=== PATIENT | female | born 1955 | race Caucasian/White ===

== ENCOUNTER 2016-12-24 11:06 | Day surgery (SDC) | payer MEDICARE, MEDICAID ==
[~2016-12-24 11:06] MED LIST: RINGERS SOLUTION,LACTATED 1,000 ML IV PRN
--- OUTSIDE RECORDS SUMMARY | 2016-12-24 11:09 | XMS REPORT | Continuity of Care Document ---
:1955 Author Organization [facility] ([facility]) Address [address] [place] [address] Phone [phone] Care Team Providers Name Role Phone Binta Valdivia Primary Care Provider [phone] Source Comments This disclosure is being made pursuant to the Care Everywhere program, applicable federal and state laws, and may not contain all informaitonavailable regarding this patient.[facility] ([facility]) Active Allergies and Adverse Reactions Allergen Noted Date Severity Reactions Comments Adhesive Tape Urticaria (Hives) Codeine Nausea & Vomiting Fexofenadine Nausea & Vomiting Niacin Nausea & Vomiting redness, burning Venlafaxine 01/17/2011 Nausea & Vomiting,OTHER "made me stay up all night" Current Medications Prescription Sig. Disp. Refills Start Date End Date Status fluticasone 50 use 2 Sprays into the 2 Bottle 3 06/05/2011 Active mcg/Actuation nose daily. Indications: nasal spray Chronic Non-Allergic Rhinitis potassium Take 1 Cap by mouth 60 Cap 6 10/15/2011 Active chloride 10 mEq daily. Indications: XR capsule Hypokalemia Prevention naproxen 500 mg Take 1 Tab by mouth 2 120 Tab 3 10/15/2011 Active tablet times daily with meals as needed. Indications: Pain triamterene-hydro Take 1 Tab by mouth Every 60 Tab 6 10/15/2011 Active chlorothiazide morning. Indications: (MAXZIDE-25MG) Hypertension 37.5-25 mg per tablet atenolol 50 mg Take 1 Tab by mouth 60 Tab 6 10/15/2011 Active tablet daily. Indications: Hypertension traMADol 50 mg Take 1 Tab by mouth every 240 Tab 3 10/15/2011 Active tablet 6 hours as needed for Pain. Indications: Pain, rls clindamycin 1 % apply 1 application 100 mL 2 03/14/2012 Active lotion topically daily. Apply a thin film on affected area as directed. Indications: BACTERIAL SKIN AND SKIN STRUCTURE INFECTION baclofen 10 mg Take 1 Tab by mouth 3 90 Tab 2 03/14/2012 Active tablet times daily as needed. Indications: myofascial pain lisinopril 10 mg Take 1 Tab by mouth 60 Tab 6 03/14/2012 Active tablet daily. Indications: HYPERTENSION simvastatin 20 mg Take 1 Tab by mouth every 60 Tab 3 04/21/2012 Active tablet evening. Mail out Indications: HYPERCHOLESTEROLEMIA FLUoxetine 20 mg Take 3 Caps by mouth 90 Cap 3 07/31/2012 Active capsule daily. Mail out Indications: DEPRESSION Active Problems Problem Noted Date Colon cancer screening 06/13/2012 Morbid obesity 03/14/2012 Myofascial pain 03/14/2012 Nicotine addiction 10/15/2011 Vitamin D deficiency 10/15/2011 RLS (restless legs syndrome) 10/15/2011 J LUIS (obstructive sleep apnea) 01/11/2010 Overview: CPAP Depressive disorder, not elsewhere classified 12/29/2008 Secondary localized osteoarthrosis, lower leg 11/02/2008 Other and unspecified hyperlipidemia 07/17/2002 Unspecified essential hypertension 07/17/2002 Immunizations Name Dates Previously Given Next Due Influenza, PF 06/05/2011,07/05/2010,09/01/2009 Influenza, unspecified 08/02/2008,08/03/2003,07/17/2002 Novel Influenza H1N1 09/01/2009 Pneumococcal Polysaccharide, PPSV23 07/17/2002 (Pneumovax 23) Td, adult unspecified 06/11/2000 Tdap 06/05/2011 Social History Tobacco Use Types Packs/Day Years Used Date Current Every Day Smoker Cigarettes 0.5 40 Smokeless Tobacco: Never Used Tobacco Cessation:Ready to Quit: No; Counseling Given: Yes Comments:cut back to 0.5 ppd in 11/24 Alcohol Use Drinks/Week oz/Week Comments No Last Filed Vital Signs Vital Sign Reading Time Taken Blood Pressure 119/58 06/13/2012 3:48 PM CDT Pulse 70 06/13/2012 3:48 PM CDT Temperature 36.2 C (97.2 F) 06/13/2012 3:48 PM CDT Respiratory Rate 16 12/07/2011 2:56 PM CDT Height 1.556 m (5' 1.25") 03/14/2012 2:55 PM CDT Weight 112.175 kg (247 lb 4.8 oz) 06/13/2012 3:48 PM CDT Body Mass Index 46.33 06/13/2012 3:48 PM CDT Oxygen Saturation 95% 12/07/2011 2:56 PM CDT Plan of Care Patient Goal Type Goal Diet Eat more fruits and vegetables Weight Weight below 107 kg (235 lb) Blood Pressure Blood Pressure below 140/90 Lifestyle declined wishes Health Maintenance Due Date Last Done Comments Hepatitis B Vaccine (1 of 3 - 1955 Primary Series) MMR Vaccine 11/15/1973 Cervical Cancer Screening 11/15/1985 FOBT Colon Cancer Screening 11/15/2005 Sigmoidoscopy Colon Cancer 11/15/2005 Screening Mammogram 03/14/2013 03/14/2012, Additional history exists 10/06/2010, 06/10/2007 Zoster Vaccine 2015 Influenza Vaccine: Seasonal 04/16/2016 06/05/2011, Additional history exists (#1) 07/05/2010, 09/01/2009 Colonoscopy 09/02/2016 09/02/2006 Lipid Disorder Screening 10/15/2016 10/15/2011, Additional history exists 08/02/2008, 01/05/2008 Td Vaccine 06/05/2021 06/05/2011, 06/11/2000 HCV Screening Completed 06/11/2000 Pneumococcal Vaccine Completed 07/17/2002 Tdap Vaccine Completed 06/05/2011 Results from Last 3 Months Not on file
[2016-12-24] MEDS ORDERED: RINGERS SOLUTION,LACTATED 1,000 ML IV ONE ×2 (11:30→13:12)
[2016-12-24] MEDS ORDERED: RINGERS SOLUTION,LACTATED 1,000 ML IV PRN (13:57)
[2016-12-24] MEDS ORDERED: ATENOLOL 50 MG TABLET PO PRN (14:27)
[2016-12-24 15:04] VITALS: BP 122/78
--- NOTE | 2016-12-25 12:08 | OR ---
Operative Report - Dictated Report Narrative: OPERATIVE REPORT DATE OF OPERATION: 12/24/2016 PREOPERATIVE DIAGNOSIS: No recent dedicated colon studies POSTOPERATIVE DIAGNOSIS: Diverticulosis OPERATION: Colonoscopy SURGEON: Kate Yip MD ANESTHESIA: TAINA Landers CRNA INDICATIONS FOR PROCEDURE: The patient is a 61-year-old female referred by Dr. Loza. Her last colonoscopy was in 2005. There is no family history of colon cancer. The patient is currently asymptomatic. FINDINGS: Sigmoid diverticulosis otherwise normal colonoscopy to the cecum NARRATIVE OF PROCEDURE: The patient was identified in the holding area, and prior to the administration of anesthetic, a multidisciplinary timeout was observed. With the patient in the left lateral position and after the administration of intravenous sedation, the perineum was inspected. There was no evidence of pilonidal disease or skin breakdown. The external appearance of the anus was normal. Sphincter tone was good. The flexible fiberoptic colonoscope was inserted into the rectum which was insufflated with air. The rectal mucosa and submucosal vascular pattern appeared normal, the prep was seen to be complete. The scope was advanced through the sigmoid colon, which contained scattered non-impacted noninflamed diverticular openings. The scope was advanced up the descending colon, and around the splenic flexure where the triangular haustral architecture of the transverse colon was seen. The scope was advanced across the transverse colon, around the hepatic flexure to the cecum, where the confluence of tenia and the ileocecal valve were identified. The mucosa at this level appeared normal. The scope was then slowly withdrawn in a circular fashion so that all aspects of colonic mucosa were inspected. The colon was normal in course and caliber. The haustral architecture appeared well preserved throughout with no evidence of external compression. The mucosa and submucosal vascular pattern appeared normal, specifically there was no gross evidence to suggest colitis or inflammatory bowel disease and no AV malformations were seen. The diverticulosis was mild in degree and confined primarily to the sigmoid colon. No polyps were encountered. The scope was gradually withdrawn to the level of the rectum. As much insufflated air as possible was removed. The scope was withdrawn from the patient and the procedure terminated. The patient tolerated the anesthetic and procedure well without complication and was transferred back to the ambulatory surgery area awake and in stable condition. The patient remained stable throughout a period of postoperative observation. She denied abdominal discomfort, was able to tolerate by mouth intake, and was up without assistance. I shared the operative findings with the patient and she was given copies of the photographs which appear in the medical record. She was discharged home with instructions not to engage in hazardous activity today , but may resume normal activity tomorrow, and advance diet as tolerated. She is to continue those medications as listed in the history and physical exam. RECOMMENDATION: Colon surveillance in 10 years depending upon findings and symptoms
== END 2016-12-24 11:07 | disposition home or self-care (01) ==
LOC: AMB 11:06
PROVIDERS: ATTEND Surgery
PROC: 0DJD8ZZ Inspection of Lower Intestinal Tract, Via Natural or Artificial Opening Endoscopic (ICD-10-PCS; principal; 2016-12-24 12:00)
DX: Z12.11 Encounter for screening for malignant neoplasm of colon (principal); K57.30 Diverticulosis of large intestine without perforation or abscess without bleeding; I10 Essential (primary) hypertension; E78.5 Hyperlipidemia, unspecified; E55.9 Vitamin D deficiency, unspecified; M19.90 Unspecified osteoarthritis, unspecified site; Z87.891 Personal history of nicotine dependence; Z68.41 Body mass index [BMI] 40.0-44.9, adult

== ENCOUNTER 2017-10-09 07:56 | Day surgery (SDC) | payer MEDICARE, MEDICAID ==
[2017-10-09] MEDS ORDERED: ACETAMINOPHEN 500 MG TABLET PO ONE (08:10)
--- NOTE | 2017-10-09 08:28 | OR ---
Anesthesia Pre Procedure Eval Date of Service: 10/09/17 Pre Procedure Evaluation: Last Vital Signs Temp 36.1 C L 10/09/17 08:06 Pulse 55 L 10/09/17 08:06 Resp 18 10/09/17 08:06 BP 145/61 10/09/17 08:06 Pulse Ox 99 10/09/17 08:06 O2 Oxygen Delivery Method Room Air Anesthesia Pre Procedure Evaluation DATE: 10/09/2017 TIME: 04 30 INDICATIONS: Low back and left pain, neural foraminal stenosis L5-S1 left. PAST MEDICAL HISTORY: Ms. Brady is had a long history of panic with occasional radicular pain. She was provided a bilateral neural foraminal block under CT several years ago with good relief at that time. Her pain has been increasing recently to the point where ambulation is next to impossible. The pain is all on the left side as recent with the primary issue towards the left side and occasional radiation into the hip. History of GERD: No History of smoking: No History of sleep apnea: Vital EXAM: Heart regular; lungs clear ASSESSMENT OF MEDICAL STATUS: Mrs. Brady is an appropriate candidate for a left neuroforaminal block. Yesterday she was scheduled as a facet block however noting this morning she is scheduled for a neural foraminal block I discussed at length with her the difference between CT-guided fluoroscopy guided neural foraminal block and the trade-offs between the 2. I recognize that the L5-S1 is a difficult level and she may have a limited time she is able to lie prone to her current back pain. A CT-guided block for her today is probably not a viable option as the schedule is set and the patient is comfortable to proceed with the planned left neural foraminal block. Considering the difficulty she may have leading the prone position I would plan an IV for potential pain relief or sedation. PLANNED PROCEDURE: Neuroforaminal block L5-S1 left Home Medications: HOME MEDICATIONS Baclofen 5 mg PO BID PRN 10/13/15 [Last Taken Unknown] FLUoxetine HCL [Prozac] 60 mg PO DAILY 10/13/15 [Last Taken Unknown] Ibuprofen [Motrin] 600 - 800 mg PO Q8H PRN 10/13/15 [Last Taken Unknown] Simvastatin [Zocor] 20 mg PO HS 10/13/15 [Last Taken Unknown] Triamterene/Hydrochlorothiazid [Maxzide 37.5MG/25 MG] 1 tab PO DAILY 10/13/15 [ Last Taken Unknown] oxyCODONE HCL [Oxycodone] 5 mg PO Q12H PRN 10/13/15 [Last Taken Unknown] Cholecalciferol (Vitamin D3) [Vitamin D3] 1,000 unit PO DAILY 12/19/16 [Last Taken Unknown] Metoprolol Succinate [Toprol Xl] 50 mg PO DAILY 10/07/17 [Last Taken Unknown] Phentermine HCl [Adipex-P] 37.5 mg PO DAILY 10/07/17 [Last Taken Unknown]
[2017-10-09] MEDS ORDERED: RINGER'S SOLUTION,LACTATED 1,000 ML IV ONE (08:40)
[2017-10-09] MEDS ORDERED: BUPIVACAINE HCL/PF 30 ML VIAL IJ ONE ×2 (09:16)
[2017-10-09] MEDS ORDERED: DEXAMETHASONE SODIUM PHOSPHATE 10 MG/ML VIAL IJ ONE ×2 (09:16)
[2017-10-09] MEDS ORDERED: LIDOCAINE HCL/PF 5 ML VIAL IJ ONE ×2 (09:16)
[2017-10-09] MEDS ORDERED: IOPAMIDOL 20 ML VIAL IJ ONE (09:16)
--- NOTE | 2017-10-09 09:47 | OR ---
Anesthesia Procedure Note - Anesthesia Procedure Note Date of Service: 10/09/17 Narrative: Vital Signs - Last Taken Temp 36.1 C L 10/09/17 08:06 Pulse 57 L 10/09/17 09:15 Resp 17 10/09/17 09:15 BP 116/72 10/09/17 09:15 Pulse Ox 99 10/09/17 09:15 O2 Oxygen Delivery Method Nasal Cannula ANESTHESIA PROCEDURE NOTE Date of Procedure: 10/09/2017 Time of procedure: 8:50 AM. Performed by: Constantino Franco CRNA, BASTER HAND, MSN Hammer Fitter: Ewa Agrawal RN. Preprocedure diagnosis: Left neural foraminal stenosis low back and left hip pain. Post procedure diagnosis: Same. Procedure: Left neural foraminal block. Indications: Left back and hip pain. Findings: See below. Details of the procedure: The patient was brought to OR #4 and was placed in the prone position. Due to the patient's history of current anxiety, as well as her current issue with laying prone for any length of time and IV was initiated with a #22-gauge IV in the left hand using lactated Ringer's 2 insidious medication. Fentanyl and Versed were given to the patient's affect which totaled 100 g of fentanyl +5 mg as. Having obtained reasonable anxiolysis with monitoring in place and O2 per nasal cannula and proceeded to prepare injection. The back was prepped with DuraPrep and draped in a sterile fashion. The lumbar area was under fluoroscopy and after adjusting the C-arm to a plane perpendicular to the intended lumbar vertebral level, a straight needle gonzalez was used to identify the level of treatment. An oblique view was then obtained to identify the angle of entry and the area was localized with 1% lidocaine solution and a 22ga Barroso needle oriented down the beam of the fluoroscopy tube. Reorienting the C-arm to a lateral view the needle was then positioned to the upper part of the neural foraminal opening and 1mL of Isovue- 200 was injected demonstrating an area of distribution which did not represent the neural foraminal sheath. The needle was advanced slightly and the procedure repeated without improvement in distribution of contrast. An additional AP, oblique and lateral view was taken and contrast injected demonstrating a better flow of the neural foraminal sheath. The CT from previous injections was brought up and compared to current placement of the spinal needle which appeared to be the appropriate length and angle approach. A distribution following the corresponding nerve and some retrograde into the epidural area. 1.5 mL of lidocaine 1% preservative-free with 5 mg of preservative-free dexamethasone was then injected, the stylette was replaced and the spinal needle removed. A Band-Aid was then applied to the injection site,the patient returned to the OR stretcher with good relief of pain and was then returned to [facility]. Fluoroscopy time: 70.2 seconds Energy dosage: 44.74mGy EBL: Minimal/negative. Fluids: N/A. Specimen: N/A. Post procedure condition: The patient tolerated the procedure well. No complications were noted. Thank you for this consultation. Constantino Franco CRNA, BASTER HAND, MSN 10/09/17 09:37
--- NOTE | 2017-10-09 09:56 | OR ---
Anesthesia Procedure Note - Anesthesia Procedure Note Date of Service: 10/09/17 Narrative: Vital Signs - Last Taken Temp 35.9 C L 10/09/17 09:39 Pulse 51 L 10/09/17 09:39 Resp 16 10/09/17 09:39 BP 136/68 10/09/17 09:39 Pulse Ox 99 10/09/17 09:39 O2 Oxygen Delivery Method Room Air 10/09/17 09:55 As an addendum to the transforaminal block just performed, Ms. Brady had a pain level of 3/10 preop, and is now at 0/10.
[2017-10-09 10:43] VITALS: BP 128/59
== END 2017-10-09 07:57 | disposition home or self-care (01) ==
LOC: AMB 07:56
PROVIDERS: ATTEND Family Medicine
PROC: 3E0T3BZ Introduction of Anesthetic Agent into Peripheral Nerves and Plexi, Percutaneous Approach (ICD-10-PCS; principal; 2017-10-09)
PROC: 3E0T33Z Introduction of Anti-inflammatory into Peripheral Nerves and Plexi, Percutaneous Approach (ICD-10-PCS; 2017-10-09)
PROC: BR16ZZZ Fluoroscopy of Lumbar Facet Joint(s) (ICD-10-PCS; 2017-10-09)
DX: M99.53 Intervertebral disc stenosis of neural canal of lumbar region (principal); M54.5 Low back pain; M54.17 Radiculopathy, lumbosacral region; M25.552 Pain in left hip

== ENCOUNTER 2020-09-06 06:27 | Observation (INO) ==
[~2020-09-06 06:27] MED LIST changes: +MORPHINE SULFATE 15 MG TABLET.SA PO PRN; -RINGERS SOLUTION,LACTATED 1,000 ML IV PRN; +ROPIVACAINE HCL/PF 100 MG, EPINEPHrine 0.2 MG, KETOROLAC TROMETHAMINE 15 MG in NORMAL S... IJ PRN; +TRANEXAMIC ACID 1,000 MG in NORMAL SALINE 100 ML IV PRN; +ceFAZolin SODIUM 1 GM VIAL IV PRN
[2020-09-06] MEDS: RINGER'S SOLUTION,LACTATED 1,000 ML IV PRN ×2 (06:55→09:25)
[2020-09-06] MEDS ORDERED: ceFAZolin SODIUM 1 GM VIAL ONE (07:16)
[2020-09-06] MEDS ORDERED: ISOPROPYL ALCOHOL 480 APPL BTL MC ONE (07:16)
--- NOTE | 2020-09-06 07:33 | ANES ---
Anesthesia Pre Procedure Eval Vitals/Labs: Last Vital Signs Temp 36.3 C 09/06/20 06:28 Pulse 74 09/06/20 06:28 Resp 16 09/06/20 06:28 BP 148/75 09/06/20 06:28 Pulse Ox 99 09/06/20 06:28 HOME MEDICATIONS Ibuprofen [Motrin] 600 - 800 mg PO Q8H PRN 10/13/15 [Last Taken Unknown] Cholecalciferol (Vitamin D3) [Vitamin D3] 1,000 unit PO DAILY 12/19/16 [Last Taken 04/30/18] Durable Medical Equipment See Dose Instructions .ROUTE .MEDSUPPLY #1 ea 05/07/19 [Last Taken Unknown] triamterene 37.5 mg-hydrochlorothiazide 25 mg tablet 1 tab PO DAILY #90 tab 11/02/19 [Last Taken 09/06/20] metoprolol succinate 50 mg tablet,extended release 24 hr 50 mg PO DAILY #90 tab 04/11/20 [Last Taken 09/06/20] Baclofen 10 mg PO BID PRN 07/13/20 [Last Taken Unknown] fluoxetine 60 mg tablet 60 mg PO DAILY #90 tab 07/13/20 [Last Taken Unknown] oxycodone 5 mg tablet 5 mg PO Q12H PRN #60 tab 08/31/20 [Last Taken Unknown] Simvastatin 20 mg PO DAILY 09/06/20 [Last Taken Unknown] Allergies/Adverse Reactions: Allergies Allergy/AdvReac Type Severity Reaction Status Date / Time niacin Allergy Mild REDNESS, Verified 09/06/20 06:47 BURNING, VOMITING fexofenadine AdvReac Mild Vomiting Verified 09/06/20 06:47 - Planned Procedure Planned Procedure: Arthroplasty LT Total Knee Medication List Reviewed:: Yes Allergies Verified: Yes Medical History (Last Reviewed 09/06/20 @ 07:29 by Constantino Franco CRNA) Arthritis Onset Date: Unknown Bilateral primary osteoarthritis of knee Onset Date: 06/10/17 Chronic pain Onset Date: Unknown Chronic renal insufficiency Onset Date: 06/24/13 DJD (degenerative joint disease) of knee Onset Date: Unknown bilateral Depression Onset Date: Unknown Essential hypertension Onset Date: 09/10/12 Hepatitis C infection Onset Date: Unknown Hyperlipidemia Onset Date: Unknown Osteoarthritis Onset Date: 06/23/14 Sinusitis, chronic Onset Date: Unknown Sleep apnea Onset Date: 06/23/14 CPAP Stress incontinence in female Onset Date: Unknown Urinary incontinence Onset Date: Unknown Vitamin D deficiency Onset Date: Unknown Tobacco abuse Onset Date: Unknown Surgical History (Last Reviewed 09/06/20 @ 07:30 by Constantino Franco CRNA) H/O dilation and curettage Onset Date: 1976 History of section Onset Date: 1978 History of cholecystectomy Onset Date: 1975 open History of colonoscopy Onset Date: 12/24/16 ' [facility]-normal. Bagan-diverticulosis. Recheck 10 yrs. 2005, 12/24/16 History of excision of mass Onset Date: ~05/01/18 Left foot [address]Dr Bryan History of hysterectomy Onset Date: 1996 RAMON BSO Hx of appendectomy Onset Date: 1975 Hx of breast surgery Onset Date: 1987 bx-benign Hx of tubal ligation Onset Date: 1978 Family History (Last Reviewed 09/06/20 @ 07:30 by Constantino Franco CRNA) Mother Anxiety Hypertension thyroid problems Father , age 63- [place] Myocardial infarction COPD (chronic obstructive pulmonary disease) Hypertension Sister Ovarian cancer Bladder cancer Anxiety Depression Cancer larynx Sister Myocardial infarction thyroid problems Sister thyroid problems Brother Anxiety all 3 brothers Myocardial infarction all 3 brothers Hypertension all 3 brothers - Family Anesthesia History Family History:: no untoward family reactions to anesthesia, no familial bleeding tendencies, no family history of clotting disorders, no family history of premature - Airway/Neck/Teeth Within Normal Limits:: Yes Teeth Condition: intact Neck Exam: full range of motion Mallampatti Score: 2 Thyromental (T-M) distance: > 6 cm Mandibulo Hyoid distance: > 3 cm - Respiratory Respiratory History: sleep apnea, CPAP/BiPAP home use Smoking Status: Former smoker - quit 3 years ago Sleep Apnea currently treated: No Sleep Apnea by current assessment: No - Cardiovascular Cardiac History: hypertension, hyperlipidemia Tolerate Activity: Poor Heart Sounds: S1 & S2, Regular - Gastrointestinal NPO since: 2400 - Anesthesia Assessment and Plan ASA Class: PS, III Anesthesia Type Plan: Block - adductor canal block for post op pain relief, Spinal
[2020-09-06] MEDS ORDERED: MIDAZOLAM HCL/PF 5 MG/ML VIAL ONE (07:44)
[2020-09-06] MEDS ORDERED: PROPOFOL VIAL IV ONE (07:44)
[2020-09-06] MEDS ORDERED: BUPIVACAINE HCL/EPINEPHRINE 50 ML VIAL ONE (07:45)
--- NOTE | 2020-09-06 10:31 | OR ---
Operative Report - Dictated Report Narrative: Date: 09/06/2020 Preoperative diagnosis: Left knee degenerative joint disease. Postoperative diagnosis: Left knee degenerative joint disease. Procedure: Left total knee arthroplasty. Surgeon: Damion Borja M.D. Crap Game Box Person: Sinan Sampson PA-C (provided and essential set of skilled, educated hands that assisted with transfer, positioning, prepping, draping, manipulation, retraction, placement of jigs, injection, insertion of implants, irrigation, closure wounds, and dressings all of which could not be performed by the available surgical crew) Anesthesia: Spinal with regional block and local periarticular joint injection. Complications: None Specimens: Bone. Estimated blood loss: Minimal. Tourniquet time: 80 Minutes at 325 millimeters of mercury. Retained implants: Depuy Attune size 6 narrow left lugged cemented posterior stabilized femoral component. Size 5 fixed-bearing cemented tibial platform. 6 by 5 millimeter posterior stabilized cross-linked tibial insert. 35 millimeter medialized patella button. Indications: Mrs. Brady is a 64-year-old female who has had longstanding left knee pain and arthrosis. This patient was followed in my clinic for period of time with significant complaints of left knee pain consistent with arthritic changes. She had failed conservative measures including, but not limited to, activity modification, passage of time, medications, and other conservative measures. Patient wished to proceed with surgical treatment. The risks, benefits, and alternatives were discussed in clinic. The risks of , blood clots, bleeding, infection, nerve/tendon blood vessel/ injury, malposition of components, intraoperative fracture, postoperative limited range of motion, persistent pain, failure of components, and need for additional procedures. Patient wished to proceed consent was obtained after answering all questions. Procedure: After marking the correct extremity on the floor, the patient was taken to the operating room. A timeout was performed. IV antibiotics consisting of Ancef were administered prior to the procedure. A regional followed by spinal anesthetic was induced by anesthesia, per my request, on the operative table with all bony prominences well-padded. Ardon catheter was placed, and a bump was placed under the operative side buttock. SCDs and ELI hose were utilized on the nonoperative leg. A well-padded tourniquet was applied to the operative thigh. The operative leg was then pre-scrubbed with alcohol, prepped, and draped in a standard sterile fashion. After exsanguinating the extremity with an Esmarch bandage, the tourniquet was inflated. After marking out the anterior knee for standard incision centered over the patella, the skin was incised and dissected down to the joint retinaculum. The joint retinaculum was marked out as well as the horizontal axis of the patella, and a standard medial parapatellar arthrotomy was then made. The most proximal aspect of the quadriceps tendon and the patella tendon insertion were protected from release. A partial synovectomy was performed as well as a resection of the infrapatellar fat pad. The distal femoral fat pad proximal to the trochlea was also resected using cautery. The soft tissues were elevated off the medial aspect of the proximal tibia using a Harris elevator ensuring that we did not transect the medial collateral ligament. Upon initial evaluation range of motion was approximately 0 degrees to 120 degrees of flexion. There were signs of advanced arthrosis in the medial, lateral, and patellofemoral joint spaces. There were large marginal osteophytes which were removed with a rongeur. The knee was hyperflexed and the patella was tucked laterally. Protecting the surrounding soft tissues with Homans, an entry drill was placed down the femoral canal using Whitesides line for guidance into the entry point. The intramedullary femoral alignment saadia was utilized in order to cut the distal femur in 5 degrees of valgus resecting 10 millimeters of bone. Next the distal femur was sized to a size 6. A posterior referencing guide was utilized to place the distal femoral cutting block in 3 degrees of external rotation. This was pinned into place. The rotation was confirmed both visually and based on anatomic landmarks. The 4 in 1 cutting jig of the appropriate size was utilized in order to make all bony cuts. The violette wing was used to ensure no notching. Retractors were utilized in order to protect surrounding soft tissues. This cut did not result in any excessive notching. We then cut the box centered over the distal femur. This allowed for resection of the anterior and posterior cruciate ligaments. I then turned my attention to the preparation of the tibia. Using an extra medullary tibial alignment saadia, 3 millimeters of bone was resected off the medial articular surface. This was made perpendicular to the mechanical axis of the joint with the alignment saadia centered over the ankle mortise. The alignment saadia was checked and was noted to be parallel to the mechanical axis, centered over the medial one third of the tibial tubercle, paralleling the anterior surface of the tibia. We then turned our attention to the remaining meniscus and soft tissues. These were removed while protecting the surrounding ligaments and soft tissues. The marginal osteophytes off the anterior, posterior, medial, lateral aspects of the femur and tibia were removed. The tibia was sized out to a size 5. Next the tibia was drilled and punched in an externally rotated position. Next the trial femur and a series of tibial inserts were utilized in order to allow for full extension and maximal flexion. It was found that a 5 millimeter insert gave the best range of motion and stability at multiple flexion points as well as at full extension there was less than 2 mm of gapping both medially and laterally. There is minimal anterior translation with the knee at 90 degrees of flexion and no signs of being able to dislocate the knee. The patella was then prepared. The initial thickness was 21 millimeters. This was reamed down to 12 millimeters parallel to the anterior surface of the patella. It was sized out to a size 35 medialized patella button. This was then drilled and trialed. Without any medial restraint the patella tracked appropriately and did not sublux or dislocate. At this point, it was felt these were the appropriate sized implants, and all trials were removed. The standard periarticular joint injection consisting of ropivacaine, Toradol, and epinephrine were injected into the periarticular joint tissues. The bony surfaces were thoroughly irrigated with a pulsatile-suction saline irrigation device. A bone plug from the prior resected anterior chamfer cut was placed into the drill hole at the distal femur. The bony surfaces were then dried in preparation for placement of the implants. The cement was vacuum mixed per the livestock agent's instructions. The cement was placed on the dry bony surfaces and posterior aspect of the implants. The implants were impacted into place, removing all extruded cement. At this point anesthesia administered tranexamic acid per protocol intravenously. The knee was placed in extension with axial loading with the trial insert while the cement cured. Once the cement cured, all remaining extruded cement was removed. The knee was placed through a range of motion with the trial insert to ensure appropriate range of motion and stability. Final range of motion was approximately 0 to 120 degrees. The knee was again thoroughly irrigated with pulsatile saline lavage. The final polyethylene insert was then impacted into place ensuring no retained soft tissues. The remaining periarticular joint injection was injected. A medium Hemovac drain was placed exiting superior laterally. The knee was then placed over a triangle and the arthrotomy was closed with interrupted #1 Vicryl after thoroughly irrigating the joint. The deep and subcutaneous tissues were closed with interrupted 0 and 3-0 Vicryl respectively. Skin was closed with a running subcutaneous 3-0 Monocryl and Prineo Dermabond dressing. 4 x 4's, Sof-Rol, and a full leg Jose Antonio wrap were applied. All sponge, needle, blade, and instrument counts were correct prior to closing the wounds. Postoperative condition: The patient was awoken and transferred to the postanesthesia care unit in stable condition. Plan is to be admitted to the inpatient medical/surgical floor postoperatively for 24 hours of IV antibiotics, physical therapy, occupational therapy, and medical comanagement. Patient will be weightbearing as tolerated with range of motion as tolerated. DVT prophylaxis will be with SCDs, ELI hose, and pharmacological anticoagulation. Anticipated hospital stay is approximately 1-3 days.
[2020-09-06] MEDS ORDERED: diphenhydrAMINE HCL 50 MG/ML VIAL IV PRN (10:32)
[2020-09-06] MEDS ORDERED: MAG HYDROX/ALUMINUM HYD/SIMETH 30 ML UDC PO PRN (10:32)
[2020-09-06] MEDS ORDERED: MAGNESIUM HYDROXIDE 30 ML UDC PO PRN (10:32)
[2020-09-06] MEDS ORDERED: ONDANSETRON HCL/PF 2 MG/ML VIAL IV PRN (10:32)
[2020-09-06] MEDS ORDERED: DEXTROSE 5%-LACTATED RINGERS 1,000 ML IV PRN (10:32)
[2020-09-06] MEDS ORDERED: ZOLPIDEM TARTRATE 5 MG TABLET PO PRN (10:32)
[2020-09-06] MEDS ORDERED: ACETAMINOPHEN 500 MG TABLET PO PRN (10:32)
[2020-09-06] MEDS ORDERED: MORPHINE SULFATE 2 MG/ML DISP.SYRIN IV PRN (10:32)
[2020-09-06] MEDS ORDERED: BACLOFEN 10 MG TABLET PO PRN (10:33)
--- NOTE | 2020-09-06 10:52 | ANES ---
Anesthesia Procedure Note Procedure Note: ANESTHESIA PROCEDURE NOTE Date of Procedure: 09/06/2020 Time of procedure: 8:30 AM. Performed by: YOUSIF Nieto CRNA, MSN Service Desk Manager: Jaime Nicole RN. Preprocedure diagnosis: Post total knee arthroplasty pain. Post procedure diagnosis: Same. Procedure: Left adductor Canal Block. Indications: Post left total knee arthroplasty pain relief. Findings: See below. Details of the procedure: The patient was brought to OR #4 and placed in supine position. The patient's left femoral area to the knee was prepped with chlorhexidine and using ultrasound guidance the left femoral artery and nerve was identified and then followed to the level of the adductor canal. Lidocaine 1% was infiltrated to the skin of the intended injection site. Under ultrasound guidance the saphenous nerve was approached with visualization of a 4 inch shielded block needle. Once saphenous nerve was identified with proximity to the needle tip, the saphenous nerve was surrounded with 30 mL bupivacaine 0.5% with 1-200,000 epinephrine. Please see radiology/ultrasound report for details and retained images of the procedure. EBL: 0 Fluids: N/A. Specimen: N/A. Post procedure condition: The patient tolerated the procedure well. No complications were noted. Thank you for this consultation. Constantino Franco CRNA, ARNP, MSN
--- NOTE | 2020-09-06 10:56 | ANES ---
Post Anesthesia Discharge - Transfer of Care Transfer of Care handoff given to nurse: Yes - Discharge from PACU Discharge from PACU when meets criteria: Yes - Alert and comfortable.
--- NOTE | 2020-09-06 11:28 | ANES ---
Post Anesthesia Assessment - Vital Signs Vitals: Last Vital Signs Temp 36.8 C 09/06/20 11:15 Pulse 61 09/06/20 11:15 Resp 17 09/06/20 11:15 BP 106/48 09/06/20 11:15 Pulse Ox 97 09/06/20 11:15 Airway Patency: Normal - Mental Status Level Of Consciousness: Awake, Alert, Appropriate - Pain Level Pain Score: 0 - N/V Assessment Nausea/Vomiting Presence: None Dehydration:: No
[2020-09-06] MEDS: KETOROLAC TROMETHAMINE 15 MG/ML VIAL IV SCH ×3 (11:48→22:47)
[2020-09-06] MEDS: oxyCODONE HCL/ACETAMINOPHEN 1 TAB TABLET PO PRN ×3 (11:50→23:35)
[2020-09-06] MEDS: CEFAZOLIN SODIUM/DEXTROSE,ISO 1 GM/50 ML BAG IV SCH ×2 (11:51→18:37)
[2020-09-06] MEDS: MORPHINE SULFATE 15 MG TABLET.SA PO SCH (20:10)
[2020-09-06] MEDS ORDERED: SENNOSIDES/DOCUSATE SODIUM 1 TAB TABLET PO SCH (21:00)
[2020-09-07] MEDS: CEFAZOLIN SODIUM/DEXTROSE,ISO 1 GM/50 ML BAG IV SCH (00:52)
[2020-09-07] MEDS: KETOROLAC TROMETHAMINE 15 MG/ML VIAL IV SCH ×3 (04:55→16:04)
[2020-09-07 06:22] LABS: Hematocrit 36.5 % (37.0-47.0); Hemoglobin 11.7 gm/dL (12.5-16.0); Mean Cell Volume 99.7 fl (78-100); Mean Corpuscular Hgb Conc 32.1 g/dl (32-36); Mean Platelet Volume 10.6 fl (8-12.5); Platelet Count 165 K/mm3 (150-450); Red Blood Count 3.66 M/mm3 (4.2-5.4); Red Cell Distribution Width 12.8 % (11.5-14.0); White Blood Count 5.5 K/mm3 (4.0-10.5)
[2020-09-07 06:28] LABS: Anion Gap 6.3 mmol/L (6.8-13.8); BUN/Creatinine Ratio 19.2 (9.0-21.6); Calcium * 8.5 mg/dL (7.9-10.9); Carbon Dioxide 31.8 mmol/L (24-32.6); Estimated Creat Clear 30.5; Potassium 3.1 mmol/L (3.4-4.6)
[2020-09-07] MEDS: oxyCODONE HCL/ACETAMINOPHEN 1 TAB TABLET PO PRN ×3 (06:45→16:03)
[2020-09-07] MEDS: MORPHINE SULFATE 15 MG TABLET.SA PO SCH (08:42)
[2020-09-07] MEDS ORDERED: FLUoxetine HCL 20 MG CAPSULE PO SCH (09:00)
[2020-09-07] MEDS ORDERED: CHOLECALCIFEROL 1,000 UNIT CAPSULE PO SCH (09:00)
[2020-09-07] MEDS ORDERED: METOPROLOL SUCCINATE 50 MG TABLET.SA PO SCH (09:00)
[2020-09-07] MEDS ORDERED: FLU VACC QS2020-21(6MOS UP)/PF 60 MCG/0.5 ML SYRINGE IM ONE (09:00)
[2020-09-07] MEDS ORDERED: TRIAMTERENE/HYDROCHLOROTHIAZID 1 TAB TABLET PO SCH (09:00)
[2020-09-07] MEDS ORDERED: SIMVASTATIN 20 MG TABLET PO SCH (09:00)
[2020-09-07] MEDS ORDERED: ENOXAPARIN SODIUM 40 MG/0.4 ML SYRG SC SCH (09:32)
--- NOTE | 2020-09-07 16:29 | DS ---
(1) Hypertension Problem: Chronic (2) Status post left knee replacement Problem: Acute (3) Morbid obesity Problem: Chronic (4) Chronic renal insufficiency Problem: Chronic (5) Hepatitis C Problem: Chronic (6) Hyperlipidemia Problem: Chronic (7) Depression Problem: Chronic (8) Sleep apnea Problem: Chronic (9) Incontinence Problem: Chronic Qualifiers: Incontinence type: urinary (10) Vitamin D deficiency Problem: Chronic Date of Discharge:: 09/07/20 Hospital Course: Mrs. Brady was admitted to the floor after undergoing left total knee arthroplasty. Tolerated this well. Was admitted to the floor postoperatively for 24 hours of IV antibiotics, pain control, medical comanagement, and occupational and physical therapy. OT and PT were consulted to assist with activities of daily living and ambulation. Was made weightbearing as tolerated with range of motion as tolerated. Pain was initially controlled with IV regimen. This was transitioned to oral once tolerating a by mouth intake. Was resumed on home diet and medications. A Ardon catheter was inserted in the operating room which was discontinued by postoperative day 1. A drain was placed intraoperatively into the knee which was discontinued on postoperative day 1. Lovenox, SCDs, and ELI hose were utilized for DVT prophylaxis. Vital signs remained stable to the hospital course. Labs were obtained which showed a final hemoglobin of 11.7 grams. BMP was reviewed and was stable. Physical examination throughout the hospital course showed an extremity that had sensation that was intact to light touch, palpable pulses, a benign wound, motor intact to the toes, ankle, and knee. Knee range of motion was approximately [] degrees to [] degrees. Once an oral pain regimen was tolerated and physical therapy goals were met, it was felt that they were stable for discharge to home. Instructions: Continue with weightbearing as tolerated and range of motion as tolerated. It is okay to shower and get the wound wet as long as there is no drainage from the wound. Do not bathe or soak the wound. If there is any drainage from the wound keep the wound clean and dry and cover with dry gauze and tape. Change every 2-3 days as needed if there is any drainage. Cover wound while showering if there is any drainage. Continue with physical therapy. Resume home diet. Report any fever over 101.5 Fahrenheit, uncontrolled pain, increased drainage, foul odor of drainage, new or increased calf pain or shortness of breath, or any other significant complaints. A 325mg daily aspirin will be started after finishing anticoagulation if not allergic. Continue with ELI hose on the operative extremity until instructed otherwise. No driving until instructed otherwise. Follow up in approximately 2-3 weeks. Procedures Performed: see notes below List Procedures: Left total knee arthroplasty Results and Findings: Lab Pending Results 09/07/20 06:19: WBC 5.5, RBC 3.66 L, Hgb 11.7 L, Hct 36.5 L, MCV 99.7, MCH 32.0 H, MCHC 32.1, RDW 12.8, Plt Count 165, MPV 10.6 09/07/20 06:19: Sodium 136, Plasma Sodium 136, Potassium 3.1 L, Chloride 101, Carbon Dioxide 31.8, Anion Gap 6.3 L, BUN 28 H, Creatinine 1.46 H, Est GFR (Non- Af Amer) 38 L, BUN/Creatinine Ratio 19.2, Random Glucose 131 H, Calcium 8.5 Discharge Location: Home Disposition: Home self-care Condition: Good Discharge Activity: Activity as tolerated, Weight bearing Discharge Diet: General/regular food Referrals: Kavon Loza DO [Primary Care Provider] - Problem Oriented Discharge Instructions to Patient/Family: Total Knee Replacement, Care After, [id number] Additional Patient Instructions (free text): Physical Therapy at [facility] outpatient rehab department on September 08 at 11:00am. Follow up [facility] Orthopedic office appointment on SaturdaySeptember 26 at 9:15am. Prescriptions (Any new or edited meds): Enoxaparin Sodium [Lovenox] 40 mg SC Q24H #7 disp.syrin Transmission Status: Pending to [facility] #[id number] Morphine Sulfate [Ms Contin] 15 mg PO Q12H #10 tablet.sa Transmission Status: Received by [facility] #[id number] oxyCODONE HCL/ACETAMINOPHEN [Percocet 5 MG/325 MG] 1 - 2 tab PO Q4H PRN #50 tab PRN Reason: Moderate Pain (Pain Scale 4-6) Transmission Status: Received by [facility] #[id number] Sennosides/Docusate Sodium [Senokot-S] 2 tab PO HS #60 tab Transmission Status: Pending to [facility] #[id number] Complete Home Medications List: Complete Home Medication List: Cholecalciferol (Vitamin D3) [Vitamin D3] 1,000 unit PO DAILY 12/19/16 Durable Medical Equipment See Dose Instructions .ROUTE .MEDSUPPLY #1 ea 05/07/19 triamterene 37.5 mg-hydrochlorothiazide 25 mg tablet 1 tab PO DAILY #90 tab 11/02/19 metoprolol succinate 50 mg tablet,extended release 24 hr 50 mg PO DAILY #90 tab 04/11/20 Baclofen 10 mg PO BID PRN 07/13/20 fluoxetine 60 mg tablet 60 mg PO DAILY #90 tab 07/13/20 Simvastatin 20 mg PO DAILY 09/06/20 Enoxaparin Sodium [Lovenox] 40 mg SC Q24H #7 disp.syrin 09/07/20 Morphine Sulfate [Ms Contin] 15 mg PO Q12H #10 tablet.sa 09/07/20 Sennosides/Docusate Sodium [Senokot-S] 2 tab PO HS #60 tab 09/07/20 oxyCODONE HCL/ACETAMINOPHEN [Percocet 5 MG/325 MG] 1 - 2 tab PO Q4H PRN #50 tab 09/07/20 Amb Orders for Discharge: PT Evaluation and Treatment* Facility: [facility], Location: Rehabilitation Services
[2020-09-07 16:52] VITALS: BP 95/42
== END 2020-09-07 17:35 | disposition home or self-care (01) ==
LOC: SUR 06:27 → MS 06:27
PROVIDERS: ADMIT Orthopaedic Surgery; ATTEND Orthopaedic Surgery

== ENCOUNTER 2020-11-17 08:28 | Observation (INO) ==
[~2020-11-17 08:28] MED LIST changes: -ROPIVACAINE HCL/PF 100 MG, EPINEPHrine 0.2 MG, KETOROLAC TROMETHAMINE 15 MG in NORMAL S... IJ PRN; +ROPIVACAINE/CLONIDIN/KETOROLAC 50 ML SYRINGE IJ PRN
[2020-11-17] MEDS: RINGER'S SOLUTION,LACTATED 1,000 ML IV PRN ×2 (08:55→11:13)
[2020-11-17] MEDS ORDERED: ROPIVACAINE/CLONIDIN/KETOROLAC 50 ML SYRINGE IJ ONE (09:04)
[2020-11-17] MEDS ORDERED: ceFAZolin SODIUM 1 GM VIAL ONE (09:04)
--- NOTE | 2020-11-17 10:27 | ANES ---
Anesthesia Pre Procedure Eval Vitals/Labs: Last Vital Signs Temp 36.2 C 11/17/20 08:40 Pulse 69 11/17/20 08:40 Resp 14 11/17/20 08:40 BP 140/56 11/17/20 08:40 Pulse Ox 99 11/17/20 08:40 HOME MEDICATIONS Cholecalciferol (Vitamin D3) [Vitamin D3] 1,000 unit PO DAILY 12/19/16 [Last Taken 04/30/18] Durable Medical Equipment See Dose Instructions .ROUTE .MEDSUPPLY #1 ea 05/07/19 [Last Taken Unknown] metoprolol succinate 50 mg tablet,extended release 24 hr 50 mg PO DAILY #90 tab 04/11/20 [Last Taken 11/17/20] Baclofen 10 mg PO BID PRN 07/13/20 [Last Taken Unknown] fluoxetine 60 mg tablet 60 mg PO DAILY #90 tab 07/13/20 [Last Taken Unknown] Simvastatin 20 mg PO DAILY 09/06/20 [Last Taken Unknown] aspirin 325 mg tablet 325 mg PO DAILY 09/26/20 [Last Taken 10/27/20] triamterene 37.5 mg-hydrochlorothiazide 25 mg tablet 1 tab PO DAILY #90 tab 10/06/20 [Last Taken 11/17/20] oxycodone-acetaminophen 5 mg-325 mg tablet 1 - 2 tab PO Q8H PRN #35 tab 10/18/20 [Last Taken Unknown] tramadol 50 mg tablet 100 mg PO TID PRN #60 tab 11/08/20 [Last Taken Unknown] Allergies/Adverse Reactions: Allergies Allergy/AdvReac Type Severity Reaction Status Date / Time niacin Allergy Mild REDNESS, Verified 11/17/20 08:43 BURNING, VOMITING fexofenadine AdvReac Mild Vomiting Verified 11/17/20 08:43 - Planned Procedure Planned Procedure: Right Arthroplasty Total Knee Medication List Reviewed:: Yes Allergies Verified: Yes Medical History (Last Reviewed 11/17/20 @ 10:26 by Constantino Franco CRNA) Arthritis Onset Date: Unknown Bilateral primary osteoarthritis of knee Onset Date: 06/10/17 Chronic pain Onset Date: Unknown Chronic renal insufficiency Onset Date: 06/24/13 DJD (degenerative joint disease) of knee Onset Date: Unknown bilateral Depression Onset Date: Unknown Essential hypertension Onset Date: 09/10/12 Hepatitis C infection Onset Date: Unknown Hyperlipidemia Onset Date: Unknown Osteoarthritis Onset Date: 06/23/14 Sinusitis, chronic Onset Date: Unknown Sleep apnea Onset Date: 06/23/14 CPAP Stress incontinence in female Onset Date: Unknown Urinary incontinence Onset Date: Unknown Vitamin D deficiency Onset Date: Unknown Tobacco abuse Onset Date: Unknown Surgical History (Last Reviewed 11/17/20 @ 10:26 by Constantino Franco CRNA) Hx of total knee arthroplasty Onset Date: ~09/06/20 Procedure: Left total knee arthroplasty. Dr. Borja H/O dilation and curettage Onset Date: 1976 History of section Onset Date: 1978 History of cholecystectomy Onset Date: 1975 open History of colonoscopy Onset Date: 12/24/16 ' [facility]-normal. Bagan-diverticulosis. Recheck 10 yrs. 2005, 12/24/16 History of excision of mass Onset Date: ~05/01/[address] Bryan History of hysterectomy Onset Date: 1996 RAMON BSO Hx of appendectomy Onset Date: 1975 Hx of breast surgery Onset Date: 1987 bx-benign Hx of tubal ligation Onset Date: 1978 Family History (Last Reviewed 11/17/20 @ 10:26 by Constantino Franco CRNA) Mother Anxiety Hypertension thyroid problems Father , age 63- ID Myocardial infarction COPD (chronic obstructive pulmonary disease) Hypertension Sister Ovarian cancer Bladder cancer Anxiety Depression Cancer larynx Sister Myocardial infarction thyroid problems Sister thyroid problems Brother Anxiety all 3 brothers Myocardial infarction all 3 brothers Hypertension all 3 brothers - Family Anesthesia History Family History:: no untoward family reactions to anesthesia, no familial bleeding tendencies, no family history of clotting disorders, no family history of premature - Airway/Neck/Teeth Within Normal Limits:: Yes Teeth Condition: intact Neck Exam: full range of motion Mallampatti Score: 2 Thyromental (T-M) distance: > 6 cm Mandibulo Hyoid distance: > 3 cm - Respiratory Smoking Status: Never smoker Sleep Apnea currently treated: Yes Sleep Apnea by current assessment: Yes - Cardiovascular Cardiac History: hypertension, hyperlipidemia Tolerate Activity: Fair Heart Sounds: S1 & S2, Regular - Gastrointestinal NPO since: 2400 - Anesthesia Assessment and Plan ASA Class: PS, III Anesthesia Type Plan: Block - Adductor canal for post op pain, Spinal
[2020-11-17] MEDS ORDERED: MIDAZOLAM HCL/PF 5 MG/ML VIAL ONE (10:30)
[2020-11-17] MEDS ORDERED: PROPOFOL VIAL IV ONE (10:30)
[2020-11-17] MEDS ORDERED: BUPIVACAINE HCL/EPINEPHRINE 50 ML VIAL IJ ONE (10:30)
[2020-11-17] MEDS ORDERED: MAG HYDROX/ALUMINUM HYD/SIMETH 30 ML UDC PO PRN (12:09)
[2020-11-17] MEDS ORDERED: ONDANSETRON HCL/PF 2 MG/ML VIAL IV PRN (12:09)
[2020-11-17] MEDS ORDERED: ZOLPIDEM TARTRATE 5 MG TABLET PO PRN (12:09)
[2020-11-17] MEDS ORDERED: ACETAMINOPHEN 500 MG TABLET PO PRN (12:09)
[2020-11-17] MEDS ORDERED: DEXTROSE 5%-LACTATED RINGERS 1,000 ML IV PRN (12:09)
[2020-11-17] MEDS ORDERED: MAGNESIUM HYDROXIDE 30 ML UDC PO PRN (12:09)
[2020-11-17] MEDS ORDERED: diphenhydrAMINE HCL 50 MG/ML VIAL IV PRN (12:09)
--- NOTE | 2020-11-17 12:09 | OR ---
Operative Report - Dictated Report Narrative: Date: 11/17/2020 Preoperative diagnosis: Right knee degenerative joint disease. Postoperative diagnosis: Right knee degenerative joint disease. Procedure: Right total knee arthroplasty. Surgeon: Damion Borja M.D. Varnish Maker: Matty Munguia PA-C (provided and essential set of skilled, educated hands that assisted with transfer, positioning, prepping, draping, manipulation, retraction, placement of jigs, injection, insertion of implants, irrigation, closure wounds, and dressings all of which could not be performed by the available surgical crew) Anesthesia: Spinal with regional block and local periarticular joint injection. Complications: None Specimens: Bone. Estimated blood loss: Minimal. Tourniquet time: 80 minutes at 325 millimeters of mercury. Retained implants: Depuy Attune size 6 narrow right lugged cemented posterior stabilized femoral component. Size 5 fixed-bearing cemented tibial platform. 6 by 7 millimeter posterior stabilized cross-linked tibial insert. 35 millimeter medialized patella button. Indications: Mrs. Brady is a 65-year-old female who has had longstanding right knee pain and arthrosis. This patient was followed in my clinic for period of time with significant complaints of right knee pain consistent with arthritic changes. She had failed conservative measures including, but not limited to, activity modification, passage of time, medications, and other conservative measures. Patient wished to proceed with surgical treatment. The risks, benefits, and alternatives were discussed in clinic. The risks of , blood clots, bleeding, infection, nerve/tendon blood vessel/ injury, malposition of components, intraoperative fracture, postoperative limited range of motion, persistent pain, failure of components, and need for additional procedures. Patient wished to proceed consent was obtained after answering all questions. Procedure: After marking the correct extremity on the floor, the patient was taken to the operating room. A timeout was performed. IV antibiotics consisting of Ancef were administered prior to the procedure. A regional followed by spinal anesthetic was induced by anesthesia, per my request, on the operative table with all bony prominences well-padded. Ardon catheter was placed, and a bump was placed under the operative side buttock. SCDs and ELI hose were utilized on the nonoperative leg. A well-padded tourniquet was applied to the operative thigh. The operative leg was then pre-scrubbed with alcohol, prepped, and draped in a standard sterile fashion. After exsanguinating the extremity with an Esmarch bandage, the tourniquet was inflated. After marking out the anterior knee for standard incision centered over the patella, the skin was incised and dissected down to the joint retinaculum. The joint retinaculum was marked out as well as the horizontal axis of the patella, and a standard medial parapatellar arthrotomy was then made. The most proximal aspect of the quadriceps tendon and the patella tendon insertion were protected from release. A partial synovectomy was performed as well as a resection of the infrapatellar fat pad. The distal femoral fat pad proximal to the trochlea was also resected using cautery. The soft tissues were elevated off the medial aspect of the proximal tibia using a Harris elevator ensuring that we did not transect the medial collateral ligament. Upon initial evaluation range of motion was approximately 0 degrees to 120 degrees of flexion. There were signs of advanced arthrosis in the medial, lateral, and patellofemoral joint spaces. There were large marginal osteophytes which were removed with a rongeur. The knee was hyperflexed and the patella was tucked laterally. Protecting the surrounding soft tissues with Homans, an entry drill was placed down the femoral canal using Whitesides line for guidance into the entry point. The intramedullary femoral alignment saadia was utilized in order to cut the distal femur in 5 degrees of valgus resecting 10 millimeters of bone. Next the distal femur was sized to a size 6. A posterior referencing guide was utilized to place the distal femoral cutting block in 3 degrees of external rotation. This was pinned into place. The rotation was confirmed both visually and based on anatomic landmarks. The 4 in 1 cutting jig of the appropriate size was utilized in order to make all bony cuts. The violette wing was used to ensure no notching. Retractors were utilized in order to protect surrounding soft tissues. This cut did not result in any excessive notching. We then cut the box centered over the distal femur. This allowed for resection of the anterior and posterior cruciate ligaments. I then turned my attention to the preparation of the tibia. Using an extra medullary tibial alignment saadia, 4 millimeters of bone was resected off the medial articular surface. This was made perpendicular to the mechanical axis of the joint with the alignment saadia centered over the ankle mortise. The alignment saadia was checked and was noted to be parallel to the mechanical axis, centered over the medial one third of the tibial tubercle, paralleling the anterior surface of the tibia. We then turned our attention to the remaining meniscus and soft tissues. These were removed while protecting the surrounding ligaments and soft tissues. The marginal osteophytes off the anterior, posterior, medial, lateral aspects of the femur and tibia were removed. The tibia was sized out to a size 5. Next the tibia was drilled and punched in an externally rotated position. Next the trial femur and a series of tibial inserts were utilized in order to allow for full extension and maximal flexion. It was found that a 7 millimeter insert gave the best range of motion and stability at multiple flexion points as well as at full extension there was less than 2 mm of gapping both medially and laterally. There is minimal anterior translation with the knee at 90 degrees of flexion and no signs of being able to dislocate the knee. The patella was then prepared. The initial thickness was 21 millimeters. This was reamed down to 12 millimeters parallel to the anterior surface of the patella. It was sized out to a size 35 medialized patella button. This was then drilled and trialed. Without any medial restraint the patella tracked appropriately and did not sublux or dislocate. At this point, it was felt these were the appropriate sized implants, and all trials were removed. The standard periarticular joint injection consisting of ropivacaine, Toradol, and epinephrine were injected into the periarticular joint tissues. The bony surfaces were thoroughly irrigated with a pulsatile-suction saline irrigation device. A bone plug from the prior resected anterior chamfer cut was placed into the drill hole at the distal femur. The bony surfaces were then dried in preparation for placement of the implants. The cement was vacuum mixed per the power lineworker's instructions. The cement was placed on the dry bony surfaces and posterior aspect of the implants. The implants were impacted into place, removing all extruded cement. At this point anesthesia administered tranexamic acid per protocol intravenously. The knee was placed in extension with axial loading with the trial insert while the cement cured. Once the cement cured, all remaining extruded cement was removed. The knee was placed through a range of motion with the trial insert to ensure appropriate range of motion and stability. Final range of motion was approximately 0 to 120 degrees. The knee was again thoroughly irrigated with pulsatile saline lavage. The final polyethylene insert was then impacted into place ensuring no retained soft tissues. The remaining periarticular joint injection was injected. A medium Hemovac drain was placed exiting superior laterally. The knee was then placed over a triangle and the arthrotomy was closed with interrupted #1 Vicryl after thoroughly irrigating the joint. The deep and subcutaneous tissues were closed with interrupted 0 and 3-0 Vicryl respectively. Skin was closed with a running subcutaneous 3-0 Monocryl and Prineo Dermabond dressing. 4 x 4's, Sof-Rol, and a full leg Jose Antonio wrap were applied. All sponge, needle, blade, and instrument counts were correct prior to closing the wounds. Postoperative condition: The patient was awoken and transferred to the postanesthesia care unit in stable condition. Plan is to be admitted to the inpatient medical/surgical floor postoperatively for 24 hours of IV antibiotics, physical therapy, occupational therapy, and medical comanagement. Patient will be weightbearing as tolerated with range of motion as tolerated. DVT prophylaxis will be with SCDs, ELI hose, and pharmacological anticoagulation. Anticipated hospital stay is approximately 1-3 days.
[2020-11-17] MEDS ORDERED: BACLOFEN 10 MG TABLET PO PRN (12:12)
[2020-11-17] MEDS ORDERED: MORPHINE SULFATE 4 MG/ML SYRG ONE (12:41)
--- NOTE | 2020-11-17 12:41 | ANES ---
Anesthesia Procedure Note Procedure Note: ANESTHESIA PROCEDURE NOTE Date of Procedure: 11/17/2020 Time of procedure: 10:40 AM. Performed by: YOUSIF Nieto CRNA, MSN Aquatic Director: Andra Black RN. Preprocedure diagnosis: Post right total knee arthroplasty pain. Post procedure diagnosis: Same. Procedure: Right adductor Canal Block. Indications: Post right total knee arthroplasty pain relief. Findings: See below. Details of the procedure: The patient was brought to OR #2 and placed in supine position. The patient's right femoral area to the knee was prepped with chlorhexidine and using ultrasound guidance the right femoral artery and nerve was identified and then followed to the level of the adductor canal. Lidocaine 1% was infiltrated to the skin of the intended injection site. Under ultrasound guidance the saphenous nerve was approached with visualization of a 4 inch shielded block needle. Once saphenous nerve was identified with proximity to the needle tip, the saphenous nerve was surrounded with 20 mL bupivacaine 0.25% with 1-200,000 epinephrine. Please see radiology/ultrasound report for details and retained images of the procedure. EBL: 0 Fluids: N/A. Specimen: N/A. Post procedure condition: The patient tolerated the procedure well. No complications were noted. Thank you for this consultation. Constantino Franco CRNA, ARNP, MSN
[2020-11-17] MEDS: MORPHINE SULFATE 2 MG/ML DISP.SYRIN IV PRN ×2 (12:43→13:05)
--- NOTE | 2020-11-17 13:19 | ANES ---
Post Anesthesia Assessment - Vital Signs Vitals: Last Vital Signs Temp 36.8 C 11/17/20 12:35 Pulse 70 11/17/20 12:45 Resp 16 11/17/20 12:45 BP 124/49 11/17/20 12:45 Pulse Ox 99 11/17/20 12:45 Airway Patency: Normal - Mental Status Level Of Consciousness: Awake, Alert, Appropriate - Pain Level Pain Score: 8 - N/V Assessment Nausea/Vomiting Presence: None Dehydration:: No
[2020-11-17] MEDS: oxyCODONE HCL/ACETAMINOPHEN 1 TAB TABLET PO PRN ×2 (13:30→23:16)
[2020-11-17] MEDS: KETOROLAC TROMETHAMINE 15 MG/ML VIAL IV SCH ×2 (13:34→20:10)
[2020-11-17] MEDS: ceFAZolin SODIUM 1 GM in DEXTROSE 5 % IN WATER 100 ML IV SCH ×4 (13:34→20:11)
[2020-11-17] MEDS: MORPHINE SULFATE 15 MG TABLET.SA PO SCH (20:12)
[2020-11-17] MEDS ORDERED: SENNOSIDES/DOCUSATE SODIUM 1 TAB TABLET PO SCH (21:00)
[2020-11-17] MEDS ORDERED: SIMVASTATIN 20 MG TABLET PO SCH (21:00)
[2020-11-18] MEDS: KETOROLAC TROMETHAMINE 15 MG/ML VIAL IV SCH ×3 (02:18→12:28)
[2020-11-18] MEDS: ceFAZolin SODIUM 1 GM in DEXTROSE 5 % IN WATER 100 ML IV SCH ×2 (02:18)
[2020-11-18] MEDS: oxyCODONE HCL/ACETAMINOPHEN 1 TAB TABLET PO PRN ×3 (05:01→14:56)
[2020-11-18 06:08] LABS: Hematocrit 34.7 % (37.0-47.0); Hemoglobin 10.7 gm/dL (12.5-16.0); Mean Cell Volume 100.9 fl (78-100); Mean Corpuscular Hemoglobin 31.1 pg (27-31); Mean Corpuscular Hgb Conc 30.8 g/dl (32-36); Mean Platelet Volume 10.9 fl (8-12.5); Platelet Count 173 K/mm3 (150-450); Red Blood Count 3.44 M/mm3 (4.2-5.4); Red Cell Distribution Width 12.8 % (11.5-14.0); White Blood Count 7.3 K/mm3 (4.0-10.5)
[2020-11-18 06:19] LABS: Anion Gap 9.2 mmol/L (6.8-13.8); BUN/Creatinine Ratio 18.4 (9.0-21.6); Calcium * 8.6 mg/dL (7.9-10.9); Carbon Dioxide 29.5 mmol/L (24-32.6); Estimated Creat Clear 37.1; Potassium 3.7 mmol/L (3.4-4.6)
[2020-11-18] MEDS: METOPROLOL SUCCINATE 50 MG TABLET.SA PO SCH ×2 (08:47→08:55)
[2020-11-18] MEDS: MORPHINE SULFATE 15 MG TABLET.SA PO SCH (08:55)
[2020-11-18] MEDS ORDERED: CHOLECALCIFEROL 1,000 UNIT CAPSULE PO SCH (09:00)
[2020-11-18] MEDS ORDERED: TRIAMTERENE/HYDROCHLOROTHIAZID 1 TAB TABLET PO SCH (09:00)
[2020-11-18] MEDS ORDERED: FLUoxetine HCL 20 MG CAPSULE PO SCH (09:00)
[2020-11-18] MEDS ORDERED: ENOXAPARIN SODIUM 40 MG/0.4 ML SYRG SC SCH (11:09)
--- NOTE | 2020-11-18 13:50 | DS ---
(1) Status post total right knee replacement Problem: Acute Date of Discharge:: 11/18/20 Hospital Course: 65-year-old female postop day 1 status post right total knee arthroplasty. Patient was admitted postoperatively and has had an uncomplicated stay to this point. She was admitted for monitoring, postoperative complications, pain control, return to p.o. diet. Patient also has met all of her PT/OT goals at this time. Discussed with patient plan to discharge home with self-care. Exam today reveals right lower extremity sensation intact light touch, distal capillary refill brisk, 5/5 plantar flexion dorsiflexion ankle, mild diffuse tenderness about the knee, bandages clean/dry/intact. Patient will continue with following recommendations: -Weightbearing as tolerated assistive ice as needed -PT/OT progress as tolerated per protocol -DVT prophylaxis: Lovenox for 7 days followed by 325 mg aspirin daily for 6 weeks, ELI hose knee-high bilateral -P.o. diet as tolerated -P.o. pain medication as prescribed -Follow-up with orthopedics outpatient -Pernio dressing in place monitor for any significant erythema or drainage -Disposition: Discharge home self-care, outpatient physical therapy, follow-up with orthopedics Procedures Performed: see notes below List Procedures: Status post right total knee arthroplasty Results and Findings: Lab Pending Results 11/18/20 06:05: WBC 7.3, RBC 3.44 L, Hgb 10.7 L, Hct 34.7 L, MCV 100.9 H, MCH 31.1 H, MCHC 30.8 L, RDW 12.8, Plt Count 173, MPV 10.9 11/18/20 06:05: Sodium 139, Plasma Sodium 139, Potassium 3.7, Chloride 104, Carbon Dioxide 29.5, Anion Gap 9.2, BUN 23, Creatinine 1.25, Est GFR (Non-Af Amer) 46 L, BUN/Creatinine Ratio 18.4, Random Glucose 126 H, Calcium 8.6 Discharge Location: Home Disposition: Home self-care Condition: Stable Discharge Activity: Activity as tolerated, Weight bearing - Assistive device as needed Discharge Diet: General/regular food Referrals: Kavon Loza DO [Primary Care Provider] - Problem Oriented Discharge Instructions to Patient/Family: Total Knee Replacement, [id number], Total Knee Replacement, Care After, [id number] Print Language (Estonian or Sri Lankan Available): Estonian Additional Patient Instructions (free text): Physical therapy at [facility] outpatient rehab on SaturdayNovember 21 at 2:30pm. Follow up [facility] Orthopedic office appointment on December 08 at 9:00am. Prescriptions (Any new or edited meds): Enoxaparin Sodium [Lovenox] 40 mg SC Q24H #6 disp.syrin Transmission Status: Pending to [facility] #[id number] Morphine Sulfate [Ms Contin] 15 mg PO Q12H #10 tablet.sa Transmission Status: Received by [facility] #[id number] oxyCODONE HCL/ACETAMINOPHEN [Percocet 5 MG/325 MG] 2 tab PO Q4H PRN #50 tab PRN Reason: Moderate Pain (Pain Scale 4-6) Transmission Status: Received by [facility] #[id number] Sennosides/Docusate Sodium [Senokot-S] 2 tab PO HS #60 tab Transmission Status: Pending to [facility] #[id number] Complete Home Medications List: Complete Home Medication List: Cholecalciferol (Vitamin D3) [Vitamin D3] 1,000 unit PO DAILY 12/19/16 Durable Medical Equipment See Dose Instructions .ROUTE .MEDSUPPLY #1 ea 05/07/19 metoprolol succinate 50 mg tablet,extended release 24 hr 50 mg PO DAILY #90 tab 04/11/20 Baclofen 10 mg PO BID PRN 07/13/20 fluoxetine 60 mg tablet 60 mg PO DAILY #90 tab 07/13/20 Simvastatin 20 mg PO DAILY 09/06/20 aspirin 325 mg tablet 325 mg PO DAILY 09/26/20 triamterene 37.5 mg-hydrochlorothiazide 25 mg tablet 1 tab PO DAILY #90 tab 10/06/20 oxycodone-acetaminophen 5 mg-325 mg tablet 1 - 2 tab PO Q8H PRN #35 tab 10/18/20 tramadol 50 mg tablet 100 mg PO TID PRN #60 tab 11/08/20 Enoxaparin Sodium [Lovenox] 40 mg SC Q24H #6 disp.syrin 11/18/20 Morphine Sulfate [Ms Contin] 15 mg PO Q12H #10 tablet.sa 11/18/20 Sennosides/Docusate Sodium [Senokot-S] 2 tab PO HS #60 tab 11/18/20 oxyCODONE HCL/ACETAMINOPHEN [Percocet 5 MG/325 MG] 2 tab PO Q4H PRN #50 tab 11/18/20 Amb Orders for Discharge: PT Evaluation and Treatment* Location: None Selected
[2020-11-18 15:17] VITALS: BP 114/43
== END 2020-11-18 15:28 | disposition home or self-care (01) ==
LOC: SUR 08:28 → MS 08:28
PROVIDERS: ADMIT Orthopaedic Surgery; ATTEND Orthopaedic Surgery
DX: M17.11 Unilateral primary osteoarthritis, right knee